=== PATIENT | male | born 1955 | race Caucasian/White ===

== ENCOUNTER → 2020-12-06 08:59 | Outpatient (CLI) | payer BC, SELFPAY ==
[2020-12-06 10:21] LABS: Alanine Aminotransferase 31 IU/L (<50); Albumin 4.3 g/dL (3.5-5.0); Albumin Globulin Ratio 1.4 (1.0-2.8); Alkaline Phosphatase 74 U/L (38-126); Aspartate Aminotransferase 32 IU/L (17-59); BUN Creatinine Ratio 15.5 (6-22); Bilirubin Total 0.9 mg/dL (0.2-1.3); Blood Urea Nitrogen 15 mg/dL (9-20); Calcium 9.7 mg/dL (8.4-10.2); Carbon Dioxide 27 mmol/L (22-32); Chloride 102 mmol/L (98-107); Cholesterol 210 mg/dL (140-199); Estimated Glomerular Filt Rate > 60.0 mL/min (>60); Globulin 3.1 g/dL (1.7-4.1); Glucose 127 mg/dL (80-110); HDL Cholesterol 60 mg/dL (40-60); HEMOLYSIS < 15 (0-50); LDL Cholesterol Calculated 117 mg/dL (<100); Potassium 3.8 mmol/L (3.4-5.1); Sodium 138 mmol/L (137-145); Total Protein 7.4 g/dL (6.3-8.2); Triglycerides 164 mg/dL (35-150)
[2020-12-06 10:45] LABS: Free T4, Direct Thyroxine 2.21 ng/dL (0.78-2.19)
[2020-12-06 10:49] LABS: Prostate Specific Antigen Scrn 1.95 ng/mL (0.1-4.0)
[2020-12-06 11:13] LABS: Thyroid Stimulating Hormone 0.038 uIU/mL (0.47-4.68)
== END ==
PROVIDERS: PCP Student in an Organized Health Care Education/Training Program; Referring Provider Student in an Organized Health Care Education/Training Program; Visit Provider Student in an Organized Health Care Education/Training Program
DX: E03.9 Hypothyroidism, unspecified (principal); E78.2 Mixed hyperlipidemia; I10 Essential (primary) hypertension; Z12.5 Encounter for screening for malignant neoplasm of prostate; Z79.899 Other long term (current) drug therapy
CPT/HCPCS: 36415; 80053; 80061; 84439; 84443; 84481; G0103

== ENCOUNTER → 2021-04-04 10:31 | Outpatient (CLI) | payer BC, SELFPAY ==
[2021-04-04 11:05] LABS: Hemoglobin A1C% w Est Avg Glu 5.6 % (4.0-6.0)
[2021-04-04 11:09] LABS: BUN Creatinine Ratio 17.1 (6-22); Blood Urea Nitrogen 18 mg/dL (9-20); Calcium 9.6 mg/dL (8.4-10.2); Carbon Dioxide 27 mmol/L (22-32); Chloride 100 mmol/L (98-107); Estimated Glomerular Filt Rate > 60.0 mL/min (>60); Glucose 124 mg/dL (80-110); HEMOLYSIS 22 (0-50); Sodium 136 mmol/L (137-145)
[2021-04-04 11:46] LABS: TSH w/ Reflex to FT4 9.85 uIU/mL (0.47-4.68)
[2021-04-04 12:15] LABS: Free T4, Direct Thyroxine 1.14 ng/dL (0.78-2.19)
== END ==
PROVIDERS: PCP Student in an Organized Health Care Education/Training Program; Referring Provider Student in an Organized Health Care Education/Training Program; Visit Provider Student in an Organized Health Care Education/Training Program
DX: I10 Essential (primary) hypertension (principal); E78.2 Mixed hyperlipidemia; R73.9 Hyperglycemia, unspecified; E03.9 Hypothyroidism, unspecified
CPT/HCPCS: 36415; 80048; 83036; 84439; 84443

== ENCOUNTER → 2021-06-28 12:41 | Outpatient (CLI) | payer BC, SELFPAY ==
[2021-06-28 16:02] LABS: Free T3, Triiodothyronine Free 3.29 pg/mL (2.77-5.27)
== END ==
PROVIDERS: PCP Student in an Organized Health Care Education/Training Program; Referring Provider Student in an Organized Health Care Education/Training Program; Visit Provider Student in an Organized Health Care Education/Training Program
DX: E03.9 Hypothyroidism, unspecified (principal)
CPT/HCPCS: 36415; 84481

== ENCOUNTER → 2021-11-10 08:46 | Outpatient (CLI) | payer BC, SELFPAY ==
--- NOTE | 2021-11-10 08:49 | DI.US.S_ITS ---
PROCEDURE: US SCROTUM INDICATIONS: LEFT HYDROCELE TECHNIQUE: Real-time scanning was performed of the scrotum and testicles, with image documentation. Color and pulse Doppler interrogation was performed of both testicles. COMPARISON: None. FINDINGS: Right: Testicle is normal in size at 4.8 x 2.2 x 3.1 cm, and homogenous in echotexture. Epididymis is normal in overall size and morphology. No hydrocele or varicoceles. Overlying scrotal skin is normal in thickness. Left: Testicle is normal in size at 4.8 x 2.5 x 2.5 cm, and homogeneous in echotexture. Epididymis is normal in overall size and morphology. There is a large left hydrocele. No varicoceles. Overlying scrotal skin is normal in thickness. Doppler: Color and pulse Doppler demonstrate normal and symmetric arterial flow in both testicles. IMPRESSION: Large left hydrocele. Dictated by: Maggy Borges M.D. on 11/10/2021 at 12:38 Approved by: Maggy Borges M.D. on 11/10/2021 at 12:42
[2021-11-10 11:00] LABS: Prostate Specific Antigen 2.14 ng/mL (0.10-4.00)
== END ==
PROVIDERS: Specialist; PCP Student in an Organized Health Care Education/Training Program; Referring Provider Internal Medicine; Visit Provider Internal Medicine
DX: N43.3 Hydrocele, unspecified (principal); N32.89 Other specified disorders of bladder; R97.20 Elevated prostate specific antigen [PSA]
CPT/HCPCS: 36415; 76870; 84153

== ENCOUNTER → 2021-11-28 10:58 | Outpatient (CLI) | payer BC, SELFPAY ==
[2021-11-28 11:53] LABS: COVID19 -Nasal RAPID Negative (Negative)
== END ==
PROVIDERS: PCP Student in an Organized Health Care Education/Training Program; Visit Provider Specialist
DX: Z20.822 Contact with and (suspected) exposure to COVID-19 (principal)
CPT/HCPCS: 87635; C9803

== ENCOUNTER 2021-12-01 09:15 | Day surgery (SDC) | payer BC, SELFPAY ==
[2021-11-30 14:11] VITALS: BMI 31.4
[2021-12-01] VITALS (9 sets, daily range): BP systolic 143–156; BP diastolic 74–91; PULSE 56–86; RESP 14–18; TEMP 36.1–36.7; O2SAT 95–100; BMI 31.4
[2021-12-01] MEDS: LACTATED RINGERS 1,000 ML 42 ML IV (10:00)
--- NOTE | 2021-12-01 11:18 | PM.PREOP ---
Pre-operative Note COVID-19 Criteria for continued procedure: Expected advancement of disease process, Possibility delay results in more complex future surgery or treatment, Increased loss of function, Continuing or worsening of significant or severe pain, Deterioration of the patient's condition or overall health and Non-surgical alternatives not available or appropriate per current SOC Interval Note History & Physical reviewed/Exam performed by Physician: Yes Changes to H&P: No
[2021-12-01] MEDS: CEFAZOLIN 2 GM/20 ML SYRINGE IV (11:35)
--- NOTE | 2021-12-01 11:54 | SUR.OPER ---
Supine on padded OR bed, head on pillow, arms secured on padded arm boards at <90 degrees abduction, legs uncrossed, safety belt at thigh, tape over blanket over lower legs.
[2021-12-01] MEDS: BUPIVACAINE 0.25% (PF) 30 ML, EPINEPHrine 0.15 MG INJ (12:03)
[2021-12-01] MEDS: NEOMYCIN/POLYMYXIN/BACITRA UD OINT 1 EACH TOP (12:07)
[2021-12-01] MEDS: BUPIVACAINE LIPOSOME 266 MG/20 ML VIAL INJ (12:24)
--- NOTE | 2021-12-01 12:42 | P.OP_ITS ---
Operative Date/Time/Diagnoses Date of procedure: 12/01/21 Time of procedure: 12:42 Pre-op diagnosis: Left hydrocele Post-op diagnosis: same Procedure & Clinicians Procedure: 1. Left hydrocelectomy Same procedure as scheduled: Yes Indications: 1. Symptomatic left hydrocele Surgeon: Syed Bardales Click Yes if Unassisted: Yes Anesthesia Type: General and Local (1.66% Exparel) Operative Notes Findings: Normal scan and scrotal wall tissue planes. Three intrascrotal Perles measuring from 2 to 3 mm each. All removed. Closure Type: primary Specimen(s): none sent Applied: drain(s) (Ten Vietnamese Brady fenestrated drain to bulb self suction.) Estimated Blood Loss (mL): 1 Blood products transfused: none Procedure in detail: Patient was positioned supine was administered general anesthesia. The lower abdomen, genitalia, and groin were then prepped and draped in sterile fashion. A solution of 0.5% Marcaine with epinephrine was then used to infiltrate the skin and subcu dartos fascia the midline scrotum. A needle-tip cautery pen was then used to divide the skin and midline dartos fascia to level of the tunica vaginalis of the left hemiscrotum. The appropriate plane was then identified, entered common developed. The fluid filled tunica vaginalis was then delivered from the left hemiscrotum and into the operative field. The tunica vaginalis was then divided longitudinally in the midline and its contents drained. Content character was very mildly turbid straw-colored. Above-mentioned scrotal prasad was removed as well. Next, a book coverer repair was conducted in standard fashion utilizing 2-0 Monocryl. At the inferior pole the testis was positioned anatomically and secured to the inferior posterior inner scrotal wall. X probe was then utilized to anesthetize the dartos fashion skin of the left inferola teral scrotal wall. A fenestrated 10 Vietnamese Brady drain was then passed through this location. It was secured to the level of the skin using 2-0 silk in usual fashion. The distal end was trimmed appropriately and positioned within the left hemiscrotum. The dartos fascia was then closed with running 2-0 Monocryl. Skin was reapproximated using a running horizontal mattress of 4-0 Monocryl. Skin surface was then cleaned and dried. Stress Collins quite was then applied incision line. Dry sterile fluffs were then applied the above the patient was fitted with an athletic supporter. The patient was then awakened, transferred to [facility] and transferred to recovery in stable condition. Complications: none Post-operative Condition: stable Disposition: PACU Plan for aftercare: Discharge home.
[2021-12-01] MEDS: OXYCODONE IR 5 MG TABLET PO (12:55)
[2021-12-01] MEDS: ACETAMINOPHEN 325 MG TABLET 650 MG PO (12:55)
[2021-12-01] MEDS: fentaNYL 100 MCG/2 ML INJ IV ×2 (12:59→13:07)
== END 2021-12-01 13:40 | disposition home or self-care (01) ==
PROVIDERS: PCP Student in an Organized Health Care Education/Training Program; Referring Provider Specialist; Visit Provider Specialist
PROC: (CPT 55040; principal; 2021-12-01 10:45)
DX: N43.3 Hydrocele, unspecified (principal); N40.1 Benign prostatic hyperplasia with lower urinary tract symptoms; N13.8 Other obstructive and reflux uropathy; I10 Essential (primary) hypertension; E78.5 Hyperlipidemia, unspecified
CPT/HCPCS: 55040; C9290; J0171; J0690; J1100; J2405; J2704; J3010

== ENCOUNTER → 2022-07-19 13:59 | Outpatient (CLI) | payer BC, SELFPAY ==
[2022-07-19 14:53] LABS: HEMOLYSIS < 15 (0-50)
[2022-07-19 14:56] LABS: Hemoglobin A1C% w Est Avg Glu 5.4 % (4.0-6.0)
[2022-07-19 15:02] LABS: BUN Creatinine Ratio 22.5 (6-22); Blood Urea Nitrogen 25 mg/dL (9-20); Calcium 9.8 mg/dL (8.4-10.2); Carbon Dioxide 30 mmol/L (22-32); Chloride 95 mmol/L (98-107); Cholesterol 130 mg/dL (140-199); Estimated Glomerular Filt Rate > 60 mL/min (>60); Glucose 143 mg/dL (80-110); HDL Cholesterol 51 mg/dL (40-60); LDL Cholesterol Calculated 44 mg/dL (<100); Potassium 3.1 mmol/L (3.4-5.1); Sodium 137 mmol/L (137-145); Triglycerides 176 mg/dL (35-150)
[2022-07-19 15:29] LABS: TSH w/ Reflex to FT4 8.47 uIU/mL (0.47-4.68)
[2022-07-19 15:34] LABS: Prostate Specific Antigen Scrn 2.24 ng/mL (0.1-4.0)
[2022-07-19 16:16] LABS: Free T4, Direct Thyroxine 1.07 ng/dL (0.78-2.19)
[2022-07-19 17:36] LABS: Hep C Virus Ab w/Reflex Quant NEGATIVE s/c (NEGATIVE)
== END ==
PROVIDERS: PCP Student in an Organized Health Care Education/Training Program; Referring Provider Student in an Organized Health Care Education/Training Program; Visit Provider Student in an Organized Health Care Education/Training Program
DX: R73.03 Prediabetes (principal); I10 Essential (primary) hypertension; E78.2 Mixed hyperlipidemia; Z12.5 Encounter for screening for malignant neoplasm of prostate; Z11.59 Encounter for screening for other viral diseases; E03.9 Hypothyroidism, unspecified
CPT/HCPCS: 36415; 80048; 80061; 83036; 84439; 84443; 86803; G0103

== ENCOUNTER → 2022-08-06 11:18 | Outpatient (CLI) | payer BC, SELFPAY ==
--- NOTE | 2022-08-06 11:20 | DI.US.S_ITS ---
PROCEDURE: US ABD AORTA ANEURYSM SCREEN INDICATIONS: AAA screen TECHNIQUE: Real-time scanning was performed of the aorta and proximal common iliac arteries, with image documentation. COMPARISON: None. FINDINGS: Aorta: Abdominal aorta is normal in caliber throughout its length. Proximal mid and distal aorta measures 1.9, 1.7, 1.5 cm respectively. The right and left common iliac arteries measures 1.3 and 1.1 cm respectively. No evidence of significant atherosclerotic plaque Iliacs: Proximal common iliac arteries are normal in caliber. IMPRESSION: Normal ultrasound of the aorta without aneurysm Approved by: Miguel Mcneill M.D. on 08/06/2022 at 18:38
== END ==
PROVIDERS: PCP Student in an Organized Health Care Education/Training Program; Referring Provider Student in an Organized Health Care Education/Training Program; Visit Provider Student in an Organized Health Care Education/Training Program
DX: Z13.6 Encounter for screening for cardiovascular disorders (principal); Z87.891 Personal history of nicotine dependence
CPT/HCPCS: 76706

== ENCOUNTER 2022-10-25 08:07 | Day surgery (SDC) | payer BC, SELFPAY ==
--- NOTE | 2022-10-25 | PATH_ITS ---
[facility] Accession Number: [id number] No. of containers..04 Tissue . 01 Material submitted: . PART A: colon - TRANSVERSE POLYPS PART B: colon - DESCENDING COLON POLYPS PART C: colon - SIGMOID POLYP PART D: colon - SIGMOID (LARGE) POLYP . 01 Diagnosis: A. Transverse Colon Polyps, Biopsy: Tubular adenoma x1. Hyperplastic polyp x2. Additional colonic mucosa with benign lymphoid aggregate. . B. Descending Colon Polyps, Biopsy: Tubular adenoma. . C. Sigmoid Colon Polyp, Biopsy: Hyperplastic polyp. . D. Sigmoid (Large) Polyp, Biopsy: Tubulovillous adenoma with focal high-grade dysplasia. Hyperplastic polyp. See comment. [facility] 10/30/2022 0953 Local . 01 Comment: D. The stalk of the polyp is hard to evaluate due to poor fixation and processing artifact as well as desiccation of tissue, however, it appears to be clear of high-grade dysplasia. Correlation with the endoscopic appearance before and after polypectomy is recommended for further evaluation, to assess the completeness of removal of the polyp. As part of routine microbiology quality control technician, this part of the case was also reviewed by Dr. Chas Jordan, who agrees with the interpretation. . 01 Electronically signed: . Ester Amin MD, Pathologist NPI- [id number] . 01 Gross description: . Part A: TRANSVERSE POLYPS: Received in formalin are 4 fragment(s) of douglas, soft tissue measuring 0.8 x 0.4 x 0.3 cm to 0.2 x 0.2 x 0.1 cm submitted entirely in 1 cassette(s) Part B: DESCENDING COLON POLYPS: Received in formalin is 1 fragment(s) of douglas, soft tissue measuring 0.2 x 0.2 x 0.1 cm submitted entirely in 1 cassette(s) Part C: SIGMOID POLYP: Received in formalin are multiple fragment(s) of douglas, soft tissue measuring 1.5 x 0.5 x 0.1 cm in aggregate submitted entirely in 1 cassette(s) Part D: SIGMOID (LARGE) POLYP: Received in formalin are 2 fragment(s) of douglas, soft tissue measuring 1.3 x 1.0 x 1.0 cm to 0.8 x 0.8 x 0.5 cm which are bisected and submitted entirely in 2 cassette(s) /CPE 10/27/2022 0921 Local . 01 Pathologist provided ICD-10: D12.3, D12.4, D12.5 . 01 CPT . 503699, 713030, 972647, 714810 Specimen Comment: A courtesy copy of this report has been sent to [phone] Performed at: 01 [facility] [address] [place] [address], [place], [place] [id number] MD Kentrell Sales MD Phone: [phone]
[2022-10-25 08:25] VITALS: BP 144/76; PULSE 74; RESP 16; TEMP 36.5; O2SAT 100; BMI 30.7
[2022-10-25] MEDS: LACTATED RINGERS 1,000 ML 150 ML IV (08:40)
--- NOTE | 2022-10-25 09:31 | P.HP_ITS ---
History of Present Illness History of Present Illness Date Patient Seen: 10/25/22 Time Patient Seen: 09:31 Chief complaint: Screening Colonoscopy Narrative: Srini is a 67 year old man here for colonoscopy. He had his last colonoscopy over 10 years ago with polyps removed. No family history that he knows of. [facility]LY [facility], LAT[facility] Medical History (Updated 10/25/22 @ 09:31 by Josh Crane MD) BPH w urinary obs/LUTS Hearing loss Left hydrocele Surgical History Anesthesia History of hydrocelectomy History of knee surgery Status post hip replacement Family History Father Diabetes mellitus Mother Cancer Brother Cancer Non Hodgkin's lymphoma Grandmother Breast cancer Social History marital status: number of children: 2 household members: spouse Smoking Status: Former smoker alcohol intake: current Type(s) of exercise: aerobic frequency: 3-4 times per week Meds Home Medications and Allergies Home Medications Medication Instructions Recorded Confirmed Type olmesartan 40 mg tablet 40 mg PO DAILY #90 tabs 11/08/21 10/25/22 Rx atorvastatin 20 mg tablet 20 mg PO DAILY #90 tabs 12/27/21 10/25/22 Rx hydrochlorothiazide 50 mg tablet 50 mg PO DAILY #90 tabs 12/27/21 10/25/22 Rx sildenafil 100 mg tablet 100 mg PO DAILY PRN sexual 07/10/22 10/25/22 Rx activity #80 tabs liothyronine 5 mcg tablet 10 mcg PO DAILY #180 tabs 07/20/22 10/25/22 Rx levothyroxine 200 mcg tablet 200 mcg PO DAILY #90 tabs 08/28/22 10/25/22 Rx amlodipine 10 mg tablet 10 mg PO DAILY #90 tabs 09/07/22 10/25/22 Rx Allergies Allergy/AdvReac Type Severity Reaction Status Date / Time No Known Drug Allergies Allergy Verified 07/04/22 10:46 Exam Vital Signs (past 8 hours): - 10/25/22 08:25 Temperature 97.7 F Pulse Rate 74 Respiratory Rate 16 Blood Pressure 144/76 H Pulse Oximetry 100 Const General: No acute distress Assessment & Plan Assessment and plan (1) History of colon polyps: Status: Acute Plan We reviewed the risks and benefits of colonoscopy for colon cancer screening and he would like to proceed.
--- NOTE | 2022-10-25 10:37 | PM.OP.COLON ---
Operative Date/Time/Diagnoses Date of procedure: 10/25/22 Time of procedure: 10:37 Pre-op diagnosis: History of polyps Post-op diagnosis: same Procedure & Clinicians Study performed: Colonoscopy Same procedure as scheduled: Yes Surgeon: Josh Crane Procedure Notes Procedure in detail: Surgeon: Josh Crane MD Anesthesia: Bert Katz CRNA Procedure: The patient was brought to the endoscopy suite, placed in left lateral decubitus position. The patient was connected to monitoring devices. A time-out was performed. Sedation was administered. Once the patient was adequately sedated, a digital rectal exam was performed and was normal. The scope was then inserted and advanced to the cecum where the appendiceal orifice was identified and photographed. The scope was then slowly withdrawn over greater than 6 minutes. The mucosa was thoroughly inspected. There were 3 small polyps in the transverse colon each about 5 mm and each removed with cold snare. There were 2 polyps in the descending colon each about 5 mm removed with cold snare. There were several small polyps in the sigmoid colon removed with cold snare and a large sigmoid colon polyp greater than 1 cm removed with a hot snare in 2 takes. Because of the size a tattoo was placed on either side of the polypectomy scar. The scope was retroflexed in the rectum. No other abnormalities were seen. The scope was straightened and removed. The patient was awakened and brought to recovery. Scope withdrawal time: 40 minutes Sedation time: 44 minutes EBL: 5 mL Findings: Multiple polyps including a greater than 1 cm polyp in the sigmoid colon Post-procedure Disposition: PACU
[2022-10-25 10:39] VITALS: BP 105/61; PULSE 61; RESP 15; TEMP 36.2; O2SAT 98
[2022-10-25 10:44] VITALS: BP 116/70; PULSE 67; RESP 16; O2SAT 99
[2022-10-25 10:52] VITALS: BP 110/70; PULSE 77; RESP 16; TEMP 36.6; O2SAT 100
== END 2022-10-25 11:00 | disposition home or self-care (01) ==
PROVIDERS: PCP Student in an Organized Health Care Education/Training Program; Referring Provider Surgery; Visit Provider Surgery
PROC: 0DJD8ZZ Inspection of Lower Intestinal Tract, Via Natural or Artificial Opening Endoscopic (ICD-10-PCS; CPT 45378; principal; 2022-10-25 09:15)
DX: Z12.11 Encounter for screening for malignant neoplasm of colon (principal); Z86.010 Personal history of colon polyps; D12.3 Benign neoplasm of transverse colon; D12.4 Benign neoplasm of descending colon; D12.5 Benign neoplasm of sigmoid colon
CPT/HCPCS: 45385; 45381; J2704

== ENCOUNTER → 2022-11-19 15:38 | Outpatient (CLI) | payer BC, SELFPAY ==
[2022-11-19 16:56] LABS: Prostate Specific Antigen 2.12 ng/mL (0.10-4.00)
== END ==
PROVIDERS: PCP Student in an Organized Health Care Education/Training Program; Referring Provider Specialist; Visit Provider Specialist
DX: N40.1 Benign prostatic hyperplasia with lower urinary tract symptoms (principal); N13.8 Other obstructive and reflux uropathy
CPT/HCPCS: 36415; 84153

== ENCOUNTER → 2023-03-12 08:46 | Outpatient (CLI) | payer BC, SELFPAY ==
[2023-03-12 10:23] LABS: Hematocrit 42.1 % (41-53); Hemoglobin 15.3 g/dL (13.5-17.5); Mean Corpuscular HGB Conc 36.3 % (30-36); Mean Corpuscular Hemoglobin 32.1 PG (26-34); Mean Corpuscular Volume 88.2 fL (80-100); Platelet Count 207 X10^3/uL (150-400); Red Blood Cell Count 4.77 X10^6/uL (4.5-5.9); Red Cell Distribution Width 13.3 % (11.6-14.8); White Blood Cell Count 5.7 X10^3/uL (4.5-11.0)
[2023-03-12 10:54] LABS: Cholesterol 140 mg/dL (140-199); HDL Cholesterol 65 mg/dL (40-60); LDL Cholesterol Calculated 51 mg/dL (<100); Triglycerides 118 mg/dL (35-150)
[2023-03-12 11:19] LABS: Thyroid Stimulating Hormone 3.96 uIU/mL (0.47-4.68)
[2023-03-12 11:42] LABS: Free T4, Direct Thyroxine 1.24 ng/dL (0.78-2.19)
== END ==
PROVIDERS: PCP Internal Medicine; Referring Provider Internal Medicine; Visit Provider Internal Medicine
DX: E03.9 Hypothyroidism, unspecified (principal); E78.2 Mixed hyperlipidemia; I10 Essential (primary) hypertension
CPT/HCPCS: 36415; 80061; 84439; 84443; 85027

== ENCOUNTER 2023-06-12 11:53 | Day surgery (SDC) | payer BC, SELFPAY ==
--- NOTE | 2023-06-12 | PATH_ITS ---
[facility] Accession Number: [id number] No. of containers..01 Tissue . 01 Material submitted: . colon - SIGMOID POLYPS . 01 Diagnosis: COLON, SIGMOID, POLYPS BIOPSIES: - HYPERPLASTIC POLYPS. - NEGATIVE FOR DYSPLASIA OR MALIGNANCY DESPITE MULTIPLE LEVELS ASSESEMNT. . TXN 06/25/2023 1159 Local . 01 Electronically signed: . Devon Guerrero MD, Pathologist NPI- [id number] . 01 Gross description: . SIGMOID POLYPS: Received in formalin are multiple fragment(s) of douglas, soft tissue measuring 0.3 x 0.2 x 0.2 cm to 0.9 x 0.6 x 0.5 cm submitted entirely in 1 cassette(s) /ALESHA 06/13/2023 2226 Local . 01 Pathologist provided ICD-10: D37.4, Z86.010, Z12.11 . 01 CPT . 906642 Specimen Comment: A courtesy copy of this report has been sent to [phone] Performed at: 01 [facility] [address] [place] [id number] MD Kentrell Sales MD Phone: [phone]
[2023-06-12 12:36] VITALS: BP 147/88; PULSE 96; RESP 16; TEMP 36.6; O2SAT 97; BMI 32.8
[2023-06-12] MEDS: LACTATED RINGERS 1,000 ML 84 ML IV (12:57)
--- NOTE | 2023-06-12 13:27 | P.HP_ITS ---
History of Present Illness History of Present Illness Date Patient Seen: 06/12/23 Time Patient Seen: 13:27 Chief complaint: Dx Colonoscopy w/poss bx Narrative: Srini is a 67 year old man who had a colonoscopy earlier this year with findings of a rather large tubulovillous adenoma with HGD in the sigmoid colon. It was resected piecemeal. He is back for his follow up scope. No changes. 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 Left hydrocele Pre-diabetes Hearing loss Erectile dysfunction Acquired hypothyroidism Essential hypertension Mixed hyperlipidemia Surgical History History of hydrocelectomy Anesthesia History of knee surgery Status post hip replacement Family History Father Diabetes mellitus Mother Cancer Brother Cancer Non Hodgkin's lymphoma Grandmother Breast cancer Social History marital status: number of children: 2 household members: spouse Smoking Status: Former smoker alcohol intake: current Type(s) of exercise: aerobic frequency: 3-4 times per week Meds Home Medications and Allergies Home Medications Medication Instructions Recorded Confirmed Type sildenafil 100 mg tablet 100 mg PO DAILY PRN sexual 07/10/22 06/12/23 Rx activity #80 tabs liothyronine 5 mcg tablet 10 mcg (2 x 5 mcg) PO DAILY #180 07/20/22 06/12/23 Rx tabs levothyroxine 200 mcg tablet 200 mcg PO DAILY #90 tabs 08/28/22 06/12/23 Rx amlodipine 10 mg tablet 10 mg PO DAILY #90 tabs 09/07/22 06/12/23 Rx atorvastatin 20 mg tablet 20 mg PO DAILY #90 tabs 11/01/22 06/12/23 Rx hydrochlorothiazide 50 mg tablet 50 mg PO DAILY #90 tabs 11/06/22 06/12/23 Rx alfuzosin 10 mg tablet,extended 10 mg PO DAILY #90 tabs 11/27/22 06/12/23 Rx release 24 hr (Uroxatral) olmesartan 40 mg tablet 40 mg PO DAILY #90 tabs 06/03/23 06/12/23 Rx Allergies Allergy/AdvReac Type Severity Reaction Status Date / Time No Known Drug Allergies Allergy Verified 06/12/23 12:08 Exam Vital Signs (past 8 hours): - 06/12/23 12:36 Temperature 97.8 F Pulse Rate 96 H Respiratory Rate 16 Blood Pressure 147/88 H Pulse Oximetry 97 Oxygen Delivery Method Room Air Oxygen Delivery Method Room Air Const General: healthy appearing Resp Effort & Inspection: normal respiratory effort Assessment & Plan Assessment and plan (1) History of adenomatous polyp of colon: Status: Chronic Plan 67 year old man with history of a tubulovillous adenoma with HGD back for his follow up surveillance colonoscopy. We reviewed the risks and benefits and he would like to proceed.
[2023-06-12 14:02] VITALS: BP 107/72; PULSE 87; RESP 19; TEMP 36; O2SAT 95
--- NOTE | 2023-06-12 14:03 | PM.OP.COLON ---
Operative Date/Time/Diagnoses Date of procedure: 06/12/23 Time of procedure: 14:03 Pre-op diagnosis: History of tubulovillous adenoma with high-grade dysplasia Post-op diagnosis: same Procedure & Clinicians Study performed: Colonoscopy Same procedure as scheduled: Yes Surgeon: Josh Crane Procedure Notes Procedure in detail: Surgeon: Josh Crane MD Anesthesia: Radha Humphrey DO Procedure: The patient was brought to the endoscopy suite, placed in left lateral decubitus position. The patient was connected to monitoring devices. A time-out was performed. Sedation was administered. Once the patient was adequately sedated, a digital rectal exam was performed and was normal. The scope was then inserted and advanced to the cecum where the appendiceal orifice was identified and photographed. The scope was then slowly withdrawn over greater than 6 minutes. The mucosa was thoroughly inspected. The tattoo ink in the distal sigmoid colon was noted. There were 7 small polyps in the vicinity of the tattoo ink, all less than 8 mm, likely hyperplastic polyps. They were all removed with a cold snare and sent together as ?sigmoid polyps?. The scope was retroflexed in the rectum. No other abnormalities were seen. The scope was straightened and removed. The patient was awakened and brought to recovery. Scope withdrawal time: 10 minutes Sedation time: 14 minutes EBL: 3 mL Findings: Multiple small polyps near the site of the old polypectomy tattoo Post-procedure Disposition: PACU
[2023-06-12 14:07] VITALS: BP 106/69; PULSE 87; RESP 18; O2SAT 96
[2023-06-12 14:11] VITALS: BP 119/75; PULSE 82; RESP 12; TEMP 36.4; O2SAT 97
== END 2023-06-12 14:35 | disposition home or self-care (01) ==
PROVIDERS: PCP Internal Medicine; Referring Provider Surgery; Visit Provider Surgery
PROC: 0DJD8ZZ Inspection of Lower Intestinal Tract, Via Natural or Artificial Opening Endoscopic (ICD-10-PCS; CPT 45378; principal; 2023-06-12 13:30)
DX: Z12.11 Encounter for screening for malignant neoplasm of colon (principal); Z86.010 Personal history of colon polyps; K63.5 Polyp of colon
CPT/HCPCS: 45385; J2704

== ENCOUNTER → 2023-09-21 10:04 | Outpatient (CLI) | payer MEDICARE, SELFPAY ==
[2023-09-21 10:56] LABS: Alanine Aminotransferase 40 IU/L (<50); Albumin 4.4 g/dL (3.5-5.0); Albumin Globulin Ratio 1.4 (1.0-2.8); Alkaline Phosphatase 74 U/L (38-126); Aspartate Aminotransferase 34 IU/L (17-59); BUN Creatinine Ratio 22.5 (6-22); Blood Urea Nitrogen 34 mg/dL (9-20); Calcium 9.3 mg/dL (8.4-10.2); Carbon Dioxide 28 mmol/L (22-32); Chloride 101 mmol/L (98-107); Cholesterol 111 mg/dL (140-199); Estimated Glomerular Filt Rate 51 mL/min (>60); Globulin 3.1 g/dL (1.7-4.1); Glucose 121 mg/dL (80-110); HDL Cholesterol 50 mg/dL (40-60); HEMOLYSIS < 15 (0-50); LDL Cholesterol Calculated 42 mg/dL (<100); Potassium 3.6 mmol/L (3.4-5.1); Sodium 137 mmol/L (137-145); Total Protein 7.5 g/dL (6.3-8.2); Triglycerides 93 mg/dL (35-150)
[2023-09-21 11:11] LABS: Free T4, Direct Thyroxine 1.38 ng/dL (0.78-2.19)
[2023-09-21 11:25] LABS: Thyroid Stimulating Hormone 1.96 uIU/mL (0.47-4.68)
== END ==
PROVIDERS: PCP Internal Medicine; Referring Provider Internal Medicine; Visit Provider Internal Medicine
DX: I10 Essential (primary) hypertension (principal); E78.2 Mixed hyperlipidemia; E03.9 Hypothyroidism, unspecified
CPT/HCPCS: 36415; 80053; 80061; 84439; 84443

== ENCOUNTER → 2024-04-25 08:44 | Outpatient (CLI) | payer MEDICARE, SELFPAY ==
[2024-04-25 10:15] LABS: Alanine Aminotransferase 42 IU/L (<50); Albumin 4.5 g/dL (3.5-5.0); Albumin Globulin Ratio 1.5 (1.0-2.8); Alkaline Phosphatase 80 U/L (38-126); Aspartate Aminotransferase 39 IU/L (17-59); BUN Creatinine Ratio 17.5 (6-22); Bilirubin Total 1.2 mg/dL (0.2-1.3); Blood Urea Nitrogen 25 mg/dL (9-20); Calcium 9.6 mg/dL (8.4-10.2); Carbon Dioxide 24 mmol/L (22-32); Chloride 98 mmol/L (98-107); Cholesterol 194 mg/dL (140-199); Estimated Glomerular Filt Rate 54 mL/min (>60); Globulin 3.1 g/dL (1.7-4.1); Glucose 166 mg/dL (80-110); HDL Cholesterol 47 mg/dL (40-60); HEMOLYSIS < 15 (0-50); LDL Cholesterol Calculated 96 mg/dL (<100); Potassium 3.2 mmol/L (3.4-5.1); Sodium 134 mmol/L (137-145); Total Protein 7.6 g/dL (6.3-8.2); Triglycerides 257 mg/dL (35-150)
[2024-04-25 10:32] LABS: Free T4, Direct Thyroxine 1.24 ng/dL (0.78-2.19)
[2024-04-25 10:45] LABS: Prostate Specific Antigen Scrn 3.17 ng/mL (0.1-4.0); Thyroid Stimulating Hormone 6.53 uIU/mL (0.47-4.68)
== END ==
PROVIDERS: PCP Internal Medicine; Referring Provider Internal Medicine; Visit Provider Internal Medicine
DX: I12.9 Hypertensive chronic kidney disease with stage 1 through stage 4 chronic kidney disease, or unspecified chronic kidney disease (principal); N18.31 Chronic kidney disease, stage 3a; Z12.5 Encounter for screening for malignant neoplasm of prostate; E03.9 Hypothyroidism, unspecified; E78.2 Mixed hyperlipidemia
CPT/HCPCS: 36415; 80053; 80061; 84439; 84443; G0103